=== PATIENT | male | born 1960 | race Caucasian/White ===

== ENCOUNTER → 2020-04-12 | Outpatient (CLI) | payer OTHER ==
--- NOTE | 2020-04-12 10:25 | XR ---
EXAMINATION TYPE: XR lumbosacral spine min 4V DATE OF EXAM: 04/12/2020 CLINICAL HISTORY: pain COMPARISON: NONE TECHNIQUE: Frontal, lateral, and oblique images of the lumbar spine are obtained. FINDINGS: There are 5 lumbar type vertebral bodies identified. Curvature is noted convex to the left . The lumbar spine shows satisfactory alignment without evidence of acute fracture or dislocation. Ve rtebral body heights are within normal limits. Moderate to severe multilevel degenerative disc space narrowing and spondylosis. Mild lower lumbar facet joint arthropathy. The overlying soft tissue carlos eduardo ears unremarkable. IMPRESSION: No acute fracture or dislocation is seen in the lumbar spine.ICD 10 NO FRACTURE, INITIAL EVALUATION
== END | disposition home or self-care (01) ==
LOC: RADXRYALE 10:06
PROVIDERS: ATTEND Physician Assistant Medical
DX: M54.5 Low back pain (principal)
CPT/HCPCS: 72110

== ENCOUNTER → 2021-11-22 | Outpatient (CLI) | payer OTHER ==
--- NOTE | 2021-11-22 15:10 | XR ---
EXAMINATION TYPE: XR shoulder complete RT, 3 views DATE OF EXAM: 11/22/2021 Comparison: None Clinical History: 61-year-old male [id number], [id number] RT SHOULDER PAIN, FALL INJURY Findings: Moderate to severe degenerative change at the AC joint with joint space narrowing and prominent infer ior spurring. On the AP external rotation view, there may be some narrowing of the subacromial space. Mild degenerative spurring at the glenohumeral joint also noted. Prominent convexly marginated opaci ty at the medial right lung base. The typical right heart margin is not clearly identified. Impression: 1. Moderate to severe AC joint OA would a large inferior spur. 2. Narrowing of the subacromial space on the AP external rotation view could reflect an underlying ro tator cuff tear. Consider MRI if clinically indicated. 3. Mild glenohumeral joint OA. 4. Unusual opacity in the medial right base does not have the typical contour of the right heart bord er. Recommend dedicated 2 views of the chest to further evaluate.
== END | disposition home or self-care (01) ==
LOC: RADXRYALE 14:55
PROVIDERS: ATTEND Physician Assistant Medical
DX: S49.91XA Unspecified injury of right shoulder and upper arm, initial encounter (principal); M19.011 Primary osteoarthritis, right shoulder; W01.0XXA Fall on same level from slipping, tripping and stumbling without subsequent striking against object, initial encounter

== ENCOUNTER → 2021-12-12 | Outpatient (CLI) | payer OTHER ==
--- NOTE | 2021-12-12 12:40 | XR ---
EXAMINATION TYPE: XR chest 2V DATE OF EXAM: 12/12/2021 COMPARISON: None INDICATION: Abnormal shoulder x-ray TECHNIQUE: Single frontal view of the chest is obtained. FINDINGS: The heart size is normal. The pulmonary vasculature is normal. The lungs are clear. The right heart contour is again identified as on the right shoulder x-ray. This may be due to eventr ation of the diaphragm. A short-term follow-up chest x-ray is recommended. If Closer evaluation would be of benefit, CT chest could be performed. IMPRESSION: 1. No suspicious focal infiltrate. 2. Focal eventration of the right diaphragm. Short-term follow-up chest x-ray can be performed. CT ch est could be performed if closer evaluation at this time would be of benefit.
== END | disposition home or self-care (01) ==
LOC: RADXRYALE 10:15
PROVIDERS: ATTEND Physician Assistant Medical
DX: J98.6 Disorders of diaphragm (principal)
CPT/HCPCS: 71046

== ENCOUNTER → 2022-03-21 | Day surgery (SDC) | payer OTHER ==
[2022-03-17 11:58] VITALS: BMI 32.3
[~2022-03-21] MED LIST: LACTATED RINGERS 1,000 ML IV SCH; LIDOCAINE 1% (10MG/ML) FOR IV START INTRADERMA PRN; PROPOFOL 10 MG/ML 20 ML VIAL IV ONE
[2022-03-21 07:55] VITALS: RESP 16; TEMP 97.5
--- NOTE | 2022-03-21 08:52 | P.GSHP ---
History of Present Illness H&P Date: 03/21/22 Chief Complaint: colon cancer screening 61-year-old male here today for colonoscopy. He has not had one before. He had a stool study performed in 2019 that was reportedly normal. Family history of colon cancer in his uncle. No bowel complaints Past Medical History Past Medical History: Hypertension History of Any Multi-Drug Resistant Organisms: None Reported Additional Past Surgical History / Comment(s): deviated septum repair Past Anesthesia/Blood Transfusion Reactions: No Reported Reaction Smoking Status: Former smoker - Past Family History Mother Family Medical History: AFIB Father Family Medical History: Diabetes Mellitus Medications and Allergies Home Medications Medication Instructions Recorded Confirmed Type Glucos Sul 2Kcl/MSM/Chond/C/Mn 1 each PO DAILY 03/17/22 03/17/22 History [Glucosamine Chondroitin Cap] Losartan Potassium 50 mg PO QAM 03/17/22 03/17/22 History Metoprolol Succinate (ER) [Toprol 25 mg PO QAM 03/17/22 03/17/22 History Xl] Vitamin Pack From [facility] 1 dose PO DAILY 03/17/22 History Allergies Allergy/AdvReac Type Severity Reaction Status Date / Time No Known Allergies Allergy Verified 03/21/22 07:50 Surgical - Exam Vital Signs Temp Pulse Resp BP Pulse Ox 97.5 F L 101 H 16 147/83 97 03/21/22 07:55 03/21/22 07:55 03/21/22 07:55 03/21/22 07:55 03/21/22 07:55 Physical exam: General: Well-developed, well-nourished HEENT: Normocephalic, sclerae nonicteric Abdomen: Nontender, nondistended Extremities: No edema Neuro: Alert and oriented Assessment and Plan (1) Colon cancer screening Narrative/Plan: Will proceed with colonoscopy at this time Current Visit: Yes Status: Acute Code(s): Z12.11 - ENCOUNTER FOR SCREENING FOR MALIGNANT NEOPLASM OF COLON SNOMED Code(s): 690040212
--- NOTE | 2022-03-21 09:11 | P.PCN ---
Date of Procedure: 03/21/22 Procedure(s) Performed: PREOPERATIVE DIAGNOSIS: Colon cancer screening POSTOPERATIVE DIAGNOSIS: Small rectal polyp PROCEDURE: Colonoscopy with snare polypectomy ANESTHESIA: MAC SURGEON: Angel Luis Whitten M.D. SPECIMENS: Rectal polyp ENDOSCOPIC PROCEDURE: The patient was placed on the endoscopy table in the left decubitus position. The Olympus colonoscope was inserted into the anus and passed under direct visualization to the base of the cecum. The appendiceal orifice was visualized. From that point the scope was slowly withdrawn inspecting all surfaces carefully. There were no neoplastic inflammatory or polypoid lesions throughout the cecum, ascending, transverse, descending, and sigmoid colon. In the rectum a small polyp was seen and removed using the snare with cautery technique. No visible diverticulosis was seen. Digital rectal examination was normal. The patient was taken to the recovery room in stable condition per anesthesia guidelines. RECOMMENDATIONS: Await biopsy results. Follow-up colonoscopies 5-7 years.
[2022-03-21 09:22] VITALS: BP 94/60; PULSE 93
== END | disposition home or self-care (01) ==
LOC: ORWHC2ENDO 07:27
PROVIDERS: ATTEND Surgery
DX: Z12.11 Encounter for screening for malignant neoplasm of colon (principal); D12.8 Benign neoplasm of rectum; I10 Essential (primary) hypertension; Z80.0 Family history of malignant neoplasm of digestive organs; Z83.3 Family history of diabetes mellitus; Z87.891 Personal history of nicotine dependence; Z79.899 Other long term (current) drug therapy
CPT/HCPCS: 45385; 88305; J2704

== ENCOUNTER → 2022-07-11 | Outpatient (CLI) | payer OTHER ==
--- NOTE | 2022-07-11 12:07 | XR ---
EXAMINATION TYPE: XR abdomen 2V DATE OF EXAM: 07/11/2022 12:04 PM INDICATION: Patient age:Male; 61 years old; Reason for study: R1012,R1013 LUQ PAIN,EPIGASTRIC PAIN; COMPARISON: None. TECHNIQUE: One radiographic view of the abdomen was obtained. FINDINGS: The bowel gas pattern is nonspecific without dilated loops of small or large bowel. There i s no evidence for organomegaly or pneumoperitoneum. The osseous structures are intact. No abnormal calcifications are present. Fecal material and gas are demonstrated throughout the colon and rectum. Multilevel disc degeneration changes with mild levoscoliosis apex L3. IMPRESSION: Nonspecific bowel gas pattern without radiographic evidence for acute process.
== END | disposition home or self-care (01) ==
LOC: RADXRYALE 11:39
PROVIDERS: ATTEND Physician Assistant Medical
DX: R10.12 Left upper quadrant pain (principal); R10.13 Epigastric pain
CPT/HCPCS: 74019